=== PATIENT | male | born 2000 | race Two or more races ===

== ENCOUNTER → 2025-05-01 | Emergency (ER) | payer OTHER ==
[~2025-05-01] VITALS: Ht 162.6 cm; Wt 77.1 kg
[~2025-05-01] MED LIST: KETOROLAC TROMETHAMINE 30 MG VIAL IM STA; KETOROLAC TROMETHAMINE 30 MG VIAL ONE; METHYLPREDNISOLONE SOD SUCC 125 MG VIAL IM STA; METHYLPREDNISOLONE SOD SUCC 40 MG VIAL ONE
[2025-05-01 19:50] VITALS: BP 119/75; O2SAT 98
[2025-05-01 21:03] LABS: BASO % 0.4 % (0.1-1.2); EOS # 0.03 (0.04-0.54); EOS % 0.3 % (0.7-7.0); LYMPH # 2.59 (1.18-3.74); LYMPH % 29.1 % (19.3-53.1); MEAN PLATELET VOLUME 9.80 fl (9.4-12.4); MONO # 0.61 (0.24-0.82); MONO % 6.9 % (4.7-12.5); NEUT # 5.60 (1.56-6.13); NEUT % 63.1 % (34.0-71.1); RED CELL DISTRIBUTION WIDTH 11.7 % (11.6-14.4)
[2025-05-01 22:02] LABS: URINE APPEARANCE Clear; URINE BILIRRUBIN Negative (NEGATIVE); URINE BLOOD Negative; URINE COLOR Dark Yellow; URINE GLUCOSE Negative (NEGATIVE); URINE KETONE 15 (NEGATIVE); URINE LEUKOCYTE Negative; URINE NITRATE Negative; URINE PROTEIN Trace (NEGATIVE); URINE UROBILINOGEN 1.0 E.U./dl
[2025-05-01 22:04] LABS: BUN CREA RATIO 13.0 (7.0-25.0); CREATININE SERUM 1.23 mg/dL (0.70-1.30); GFR 73.58; GLUCOSE FASTING 62.0 mg/dL (65-100); OSMOLALITY SERUM 280.0 MOSM/KG (275-295)
[2025-05-01 22:07] LABS: URINE EPITHELIAL CELLS 1.9 uL (0.0-38.8); URINE WBC 3.3 uL (0.0-23.2)
[2025-05-01 22:12] LABS: COVID-19 AG NEGATIVE (NEGATIVE)
[2025-05-01 22:15] LABS: URINE BACTERIA 1.1 uL (0.0-1933); URINE CAST 0.14 uL (0.0-1.40); URINE RBC 0.4 uL (0.0-20.8)
== END | disposition home or self-care (01) ==
LOC: ER 19:20
PROVIDERS: General Practice
DX: J06.9 Acute upper respiratory infection, unspecified (principal); R50.9 Fever, unspecified; Z20.822 Contact with and (suspected) exposure to COVID-19